=== PATIENT | male | born 1985 | race Hispanic/Latino ===

== ENCOUNTER 2024-04-02 17:55 | Inpatient (IN) | payer MEDICAID, SELFPAY ==
[2024-04-02] MEDS ORDERED: Ipratropium/Albuterol 3 ML NEB NEB PRN (18:45)
[2024-04-02] MEDS ORDERED: Ondansetron PF 4 MG/2 ML Vial IVP PRN (18:45)
[2024-04-02] MEDS ORDERED: hydrALAZINE 20 MG/ML VIAL SLOW IVP PRN (18:45)
[2024-04-02] MEDS ORDERED: Electrolyte Replacement Protocol 1 EACH FS PRN (18:45)
[2024-04-02] MEDS ORDERED: Glucagon 1 MG/ML KIT IM PRN (18:45)
[2024-04-02] MEDS ORDERED: Morphine 2 MG/ML VIAL SLOW IVP PRN (18:45)
[2024-04-02] MEDS ORDERED: Ondansetron ODT 4 MG TAB PO PRN (18:45)
[2024-04-02] MEDS ORDERED: Dextrose 50% Abboject 50 ML SYRINGE SLOW IVP PRN (18:45)
[2024-04-02] MEDS ORDERED: Dextrose 5% in Water 1,000 ML IV PRN (18:45)
[2024-04-02] MEDS ORDERED: Acetaminophen/Codeine 30-300mg Tablet PO PRN (18:45)
[2024-04-02] MEDS ORDERED: Morphine 2 MG/ML VIAL ONE (19:15)
[2024-04-02] MEDS ORDERED: Ondansetron PF 4 MG/2 ML Vial ONE ×2 (19:15→19:52)
[2024-04-02] MEDS ORDERED: metroNIDAZOLE 500 MG (100 mL) BAG ONE (19:24)
[2024-04-02] MEDS ORDERED: KETAMINE 100 MG/ML (5ML VIAL) ONE (19:35)
[2024-04-02] MEDS ORDERED: SUCCINYLCHOLINE/SOD CL,ISO/PF 200 MG/10 ML SYRINGE FS ONE (19:52)
[2024-04-02] MEDS ORDERED: Lidocaine 2% PF 100 mg/5 ml Syringe ONE (19:52)
[2024-04-02] MEDS ORDERED: Dexamethasone 4 mg/ml Vial ONE (19:52)
[2024-04-02] MEDS ORDERED: Lidocaine 2% 6 ML (Jelly) SYR ONE (19:52)
[2024-04-02] MEDS ORDERED: Rocuronium Bromide 10 MG/ML (10ML VIAL) ONE (19:52)
[2024-04-02] MEDS ORDERED: SUGAMMADEX SODIUM 200 MG/2 ML VIAL ONE (19:53)
[2024-04-02] MEDS ORDERED: PROPOFOL 20 ML ONE (19:53)
[2024-04-02] MEDS ORDERED: Midazolam HCl 2 mg/2 ml Vial ONE (19:53)
[2024-04-02] MEDS ORDERED: fentaNYL PF 100 MCG/2 ML SYRINGE ONE ×2 (19:58→21:51)
[2024-04-02] MEDS ORDERED: CEFAZOLIN 1 GM VIAL ONE (20:32)
[2024-04-02] MEDS ORDERED: HYDROmorphone 2 MG/ML VIAL SLOW IVP PRN (20:45)
[2024-04-02] MEDS ORDERED: Meperidine HCl/PF 25 MG/ML VIAL SLOW IVP PRN (20:45)
[2024-04-02] MEDS ORDERED: Ondansetron HCl/PF 4 MG/2 ML Vial IVP PRN (20:45)
[2024-04-02] MEDS ORDERED: Promethazine HCl 25 MG/ML VIAL IM PRN (20:45)
[2024-04-02 23:12] VITALS: BMI 38.1
[2024-04-03] MEDS: HYDROcodone/Acetaminophen 5/325 mg Tablet PO PRN (00:53)
[2024-04-03] MEDS: Sodium Chloride 0.9% 1,000 ML IV SCH (00:55)
[2024-04-03] MEDS: metroNIDAZOLE 500 MG in Premix 1 BAG IVPB SCH (04:35)
[2024-04-03 06:07] LABS: #Basophils Less than 0.03 10x3/uL (0.0-0.2); #Eosinophils Less than 0.03 10x3/uL (0.0-0.7); %Basophils 0.1 % (0.0-1.0); %Eosinophils 0.1 % (0.0-10.0); %Lymphocytes 14.2 % (21.0-51.0); %Monocytes 9.7 % (0.0-10.0); %Neutrophils 75.4 % (42.0-75.0); Hematocrit 27.8 % (42.0-52.0); Hemoglobin 9.5 g/dL (14.0-18.0); Mean Corpuscular HGB CONC 34.2 g/dL (32.0-36.0); Mean Corpuscular Hemoglobin 32.2 pg (27.0-31.0); Mean Corpuscular Volume 94.2 fL (78.0-98.0); Mean Platelet Volume 10.2 fL (7.4-10.4); Platelet Count 264 10x3/uL (130-400); RBC Distribution Width 12.8 % (11.5-14.5); Red Blood Cell (RBC) Count 2.95 mill/uL (4.70-6.10)
[2024-04-03 06:21] LABS: Anion Gap 14 mmol/L (10-20); BUN (Urea Nitrogen) 9 mg/dL (8.9-20.6); Calc. Creatinine Clearance 189 mL/min (70-130); Carbon Dioxide 22 mmol/L (22-29); Chloride 104 mmol/L (98-107); Estimated GFR 117; Glucose 144 mg/dL (70-105); Potassium 3.5 mmol/L (3.5-5.1); Sodium 136 mmol/L (136-145)
[2024-04-03] MEDS ORDERED: CEFAZOLIN 2 GM in Sodium Chloride 0.9% 100 ML IVPB SCH (07:45)
[2024-04-03] MEDS ORDERED: Potassium Chloride 20 MEQ TAB PO SCH (08:00)
[2024-04-03] MEDS: Potassium Chloride 20 MEQ in Premix 1 BAG IVPB SCH (08:47)
[2024-04-03] MEDS: Ketorolac Tromethamine 30 MG (1 mL) VIAL IVP SCH (09:47)
[2024-04-03] MEDS: Morphine 4 MG/ML VIAL SLOW IVP PRN (09:47)
[2024-04-03] MEDS: cefTRIAXone\\ROCEPHIN 1 GM in Sodium Chloride 0.9% 100 ML IVPB SCH (11:45)
[2024-04-03] MEDS ORDERED: cefTRIAXone\\ROCEPHIN 500 MG in Sodium Chloride 0.9% 0 ML IVPB SCH (12:00)
[2024-04-03] MEDS: Acetaminophen 500 MG TAB PO SCH (13:02)
[2024-04-03] MEDS ORDERED: Ropivacaine 0.5% HCl/PF (150 MG/30 ML VIAL) ONE (13:52)
[2024-04-03] MEDS ORDERED: Lidocaine 1% MPF 2 ML VIAL ONE (13:52)
[2024-04-03] MEDS ORDERED: fentaNYL 50 mcg/mL 1 mL Vial ONE ×2 (13:52→15:53)
[2024-04-03] MEDS ORDERED: fentaNYL PF 100 MCG/2 ML SYRINGE ONE ×2 (14:07→17:07)
[2024-04-03] MEDS ORDERED: PROPOFOL 20 ML ONE (14:07)
[2024-04-03] MEDS ORDERED: CEFAZOLIN 2 GM VIAL ONE (14:13)
[2024-04-03] MEDS ORDERED: Lidocaine 1% PF 5 ML VIAL ONE (14:43)
[2024-04-03] MEDS ORDERED: Ondansetron PF 4 MG/2 ML Vial ONE (15:24)
[2024-04-03] MEDS ORDERED: Dexamethasone 4 mg/ml Vial ONE (15:24)
[2024-04-03] MEDS ORDERED: Meperidine HCl/PF 25 MG/ML VIAL IV PRN (17:15)
[2024-04-03] MEDS ORDERED: Ondansetron HCl/PF 4 MG/2 ML Vial IVP PRN (17:15)
[2024-04-03] MEDS ORDERED: Promethazine HCl 25 MG/ML VIAL IM PRN (17:15)
[2024-04-03] MEDS ORDERED: Meperidine HCl/PF 25 MG/ML VIAL SLOW IVP PRN (17:15)
[2024-04-03] MEDS ORDERED: HYDROmorphone 2 MG/ML VIAL SLOW IVP PRN (17:15)
[2024-04-03] MEDS ORDERED: Morphine Sulfate 2 MG/ML SYRINGE SLOW IVP PRN (17:15)
[2024-04-03] MEDS ORDERED: PACU-Morphine 4MG/ML VIAL SLOW IVP PRN (17:15)
[2024-04-03] MEDS: Lactated Ringer's 1,000 ML IV SCH (17:42)
[2024-04-03] MEDS: Enoxaparin 40 MG (0.4 mL) SYRINGE SC SCH (21:32)
[2024-04-03] MEDS: CEFAZOLIN 2 GM in Sodium Chloride 0.9% 100 ML IVPB SCH (22:04)
[2024-04-04 08:42] LABS: #Basophils Less than 0.03 10x3/uL (0.0-0.2); #Eosinophils Less than 0.03 10x3/uL (0.0-0.7); %Basophils 0.2 % (0.0-1.0); %Lymphocytes 24.3 % (21.0-51.0); %Monocytes 6.1 % (0.0-10.0); Hematocrit 23.1 % (42.0-52.0); Hemoglobin 7.9 g/dL (14.0-18.0); Mean Corpuscular HGB CONC 34.2 g/dL (32.0-36.0); Mean Corpuscular Hemoglobin 32.8 pg (27.0-31.0); Mean Corpuscular Volume 95.9 fL (78.0-98.0); Mean Platelet Volume 10.1 fL (7.4-10.4); Platelet Count 199 10x3/uL (130-400); RBC Distribution Width 12.8 % (11.5-14.5); Red Blood Cell (RBC) Count 2.41 mill/uL (4.70-6.10)
[2024-04-04 09:15] LABS: Anion Gap 12 mmol/L (10-20); BUN (Urea Nitrogen) 10 mg/dL (8.9-20.6); Calc. Creatinine Clearance 187 mL/min (70-130); Calcium 8.1 mg/dL (7.8-10.44); Carbon Dioxide 23 mmol/L (22-29); Chloride 105 mmol/L (98-107); Estimated GFR 116; Glucose 139 mg/dL (70-105); Potassium 3.2 mmol/L (3.5-5.1); Sodium 137 mmol/L (136-145)
[2024-04-04] MEDS: Methocarbamol 500 MG TAB PO PRN (21:06)
[2024-04-05 08:04] LABS: #Basophils Less than 0.03 10x3/uL (0.0-0.2); #Eosinophils Less than 0.03 10x3/uL (0.0-0.7); %Basophils 0.1 % (0.0-1.0); %Eosinophils 0.1 % (0.0-10.0); %Monocytes 7.4 % (0.0-10.0); %Neutrophils 69.7 % (42.0-75.0); Hemoglobin 7.7 g/dL (14.0-18.0); Mean Corpuscular HGB CONC 33.5 g/dL (32.0-36.0); Mean Corpuscular Hemoglobin 32.5 pg (27.0-31.0); Mean Platelet Volume 10.1 fL (7.4-10.4); Platelet Count 230 10x3/uL (130-400); Red Blood Cell (RBC) Count 2.37 mill/uL (4.70-6.10)
[2024-04-05 08:20] LABS: Anion Gap 12 mmol/L (10-20); BUN (Urea Nitrogen) 9 mg/dL (8.9-20.6); Calc. Creatinine Clearance 218 mL/min (70-130); Calcium 8.5 mg/dL (7.8-10.44); Carbon Dioxide 25 mmol/L (22-29); Chloride 104 mmol/L (98-107); Estimated GFR 122; Glucose 99 mg/dL (70-105); Potassium 3.4 mmol/L (3.5-5.1); Sodium 138 mmol/L (136-145)
[2024-04-05] MEDS: Potassium Chloride 20 MEQ TAB PO SCH (08:44)
[2024-04-05] MEDS: TETANUS, DIPHTHERIA TOX,ADULT (TDVAX) 0.5 ML VIAL IM ONE (18:45)
[2024-04-06 09:57] LABS: #Basophils Less than 0.03 10x3/uL (0.0-0.2); %Basophils 0.1 % (0.0-1.0); %Lymphocytes 22.7 % (21.0-51.0); %Monocytes 8.4 % (0.0-10.0); %Neutrophils 67.1 % (42.0-75.0); Hematocrit 23.6 % (42.0-52.0); Mean Corpuscular HGB CONC 33.9 g/dL (32.0-36.0); Mean Corpuscular Hemoglobin 32.4 pg (27.0-31.0); Mean Corpuscular Volume 95.5 fL (78.0-98.0); Mean Platelet Volume 10.3 fL (7.4-10.4); Platelet Count 262 10x3/uL (130-400); RBC Distribution Width 12.9 % (11.5-14.5); Red Blood Cell (RBC) Count 2.47 mill/uL (4.70-6.10)
[2024-04-06] MEDS: Senokot S 8.6-50 MG TAB PO SCH (09:59)
[2024-04-06] MEDS: traMADol HCl 50 MG TAB PO PRN (10:02)
[2024-04-06 10:21] LABS: Anion Gap 14 mmol/L (10-20); BUN (Urea Nitrogen) 12 mg/dL (8.9-20.6); Calc. Creatinine Clearance 218 mL/min (70-130); Calcium 8.9 mg/dL (7.8-10.44); Carbon Dioxide 24 mmol/L (22-29); Chloride 102 mmol/L (98-107); Estimated GFR 122; Glucose 120 mg/dL (70-105); Potassium 3.9 mmol/L (3.5-5.1); Sodium 136 mmol/L (136-145)
[2024-04-07] MEDS: Polyethylene Glycol 3350 17 GM Packet PO SCH (08:41)
[2024-04-08] MEDS: cefTRIAXone (ROCEPHIN) 1 GM VIAL ONE (12:55)
[2024-04-09 16:58] VITALS: BMI 38.1
[2024-04-13] MEDS ORDERED: CEFAZOLIN 2 GM in Sodium Chloride 0.9% 100 ML IVPB SCH (13:00)
[2024-04-13] MEDS ORDERED: metroNIDAZOLE 500 MG (100 mL) BAG ONE (13:42)
[2024-04-13] MEDS ORDERED: fentaNYL PF 100 MCG/2 ML SYRINGE ONE ×3 (14:14→16:41)
[2024-04-13] MEDS ORDERED: PROPOFOL 40 ML ONE (14:15)
[2024-04-13] MEDS ORDERED: Lidocaine 1% PF 5 ML VIAL ONE (14:16)
[2024-04-13] MEDS ORDERED: Midazolam HCl 2 mg/2 ml Vial ONE (14:39)
[2024-04-13] MEDS ORDERED: CEFAZOLIN 2 GM VIAL ONE (14:44)
[2024-04-13] MEDS ORDERED: SUGAMMADEX SODIUM 200 MG/2 ML VIAL ONE (15:30)
[2024-04-13] MEDS ORDERED: Dexamethasone 20 MG/5 ML VIAL ONE (15:30)
[2024-04-13] MEDS ORDERED: Ondansetron PF 4 MG/2 ML Vial ONE (15:30)
[2024-04-13] MEDS ORDERED: Promethazine HCl 25 MG/ML VIAL IM PRN (15:54)
[2024-04-13] MEDS ORDERED: Ondansetron HCl/PF 4 MG/2 ML Vial IVP PRN (15:54)
[2024-04-13] MEDS ORDERED: HYDROmorphone 2 MG/ML VIAL SLOW IVP PRN (15:54)
[2024-04-13] MEDS ORDERED: Labetalol HCl 100 MG/20 ML VIAL ONE (16:58)
[2024-04-13] MEDS ORDERED: hydrALAZINE 20 MG/ML VIAL ONE (17:18)
[2024-04-13] MEDS ORDERED: HYDROmorphone 0.5 MG/0.5 ML SYRINGE ONE (17:29)
[2024-04-13] MEDS ORDERED: fentaNYL 50 mcg/mL 1 mL Vial ONE (17:29)
[2024-04-13] MEDS: Senokot S 8.6-50 MG TAB PO SCH (21:52)
[2024-04-13] MEDS: CEFAZOLIN 2 GM in Sodium Chloride 0.9% 100 ML IVPB SCH (22:03)
[2024-04-14] MEDS: HYDROcodone/Acetaminophen 10/325 mg Tablet PO SCH (05:34)
[2024-04-14] MEDS ORDERED: HYDROcodone/Acetaminophen 7.5/325 mg Tablet PO PRN (08:54)
[2024-04-14] MEDS: Morphine 4 MG/ML VIAL SLOW IVP PRN (10:04)
[2024-04-14] MEDS: HYDROcodone/Acetaminophen 7.5/325 mg Tablet PO PRN (14:10)
[2024-04-14] MEDS: Acetaminophen 500 MG TAB PO PRN (20:07)
[2024-04-14] MEDS: Sodium Chloride 0.9% 500 ML IVPB SCH (20:56)
[2024-04-14] MEDS: Sodium Chloride 0.9% 1,000 ML IV SCH (20:56)
[2024-04-14 20:57] LABS: #Basophils Less than 0.03 10x3/uL (0.0-0.2); %Basophils 0.1 % (0.0-1.0); %Eosinophils 0.6 % (0.0-10.0); %Lymphocytes 17.4 % (21.0-51.0); %Monocytes 10.2 % (0.0-10.0); %Neutrophils 71.2 % (42.0-75.0); Hematocrit 24.4 % (42.0-52.0); Hemoglobin 8.2 g/dL (14.0-18.0); Mean Corpuscular HGB CONC 33.6 g/dL (32.0-36.0); Mean Corpuscular Hemoglobin 30.9 pg (27.0-31.0); Mean Corpuscular Volume 92.1 fL (78.0-98.0); Platelet Count 436 10x3/uL (130-400); RBC Distribution Width 12.6 % (11.5-14.5); Red Blood Cell (RBC) Count 2.65 mill/uL (4.70-6.10)
[2024-04-14 21:16] LABS: ALT (SGPT) 8 U/L (Less than 45); AST (SGOT) 23 U/L (11-34); Alkaline Phosphatase 91 U/L (40-110); Anion Gap 13 mmol/L (10-20); BUN (Urea Nitrogen) 12 mg/dL (8.9-20.6); Bilirubin, Total 0.6 mg/dL (0.3-1.2); Calc. Creatinine Clearance 211 mL/min (70-130); Calcium 8.8 mg/dL (7.8-10.44); Carbon Dioxide 21 mmol/L (22-29); Chloride 99 mmol/L (98-107); Estimated GFR 121; Globulin 4.3 g/dL (2.4-3.5); Glucose 109 mg/dL (70-105); Potassium 3.6 mmol/L (3.5-5.1); Protein, Total 7.3 g/dL (6.0-8.3); Sodium 129 mmol/L (136-145)
[2024-04-15 11:17] LABS: Lactic Acid 0.76 mmol/L (0.50-2.20)
[2024-04-15] MEDS: Sodium Chloride 0.9% 1,000 ML IV SCH (12:56)
[2024-04-16 09:04] LABS: #Basophils Less than 0.03 10x3/uL (0.0-0.2); %Basophils 0.1 % (0.0-1.0); %Eosinophils 1.3 % (0.0-10.0); %Monocytes 7.5 % (0.0-10.0); %Neutrophils 66.1 % (42.0-75.0); Hematocrit 26.1 % (42.0-52.0); Hemoglobin 8.9 g/dL (14.0-18.0); Mean Corpuscular HGB CONC 34.1 g/dL (32.0-36.0); Mean Corpuscular Volume 90.9 fL (78.0-98.0); Mean Platelet Volume 10.2 fL (7.4-10.4); Platelet Count 476 10x3/uL (130-400); RBC Distribution Width 12.6 % (11.5-14.5); Red Blood Cell (RBC) Count 2.87 mill/uL (4.70-6.10)
[2024-04-16 09:29] LABS: Anion Gap 13 mmol/L (10-20); BUN (Urea Nitrogen) 8 mg/dL (8.9-20.6); Calc. Creatinine Clearance 235 mL/min (70-130); Calcium 9.1 mg/dL (7.8-10.44); Carbon Dioxide 22 mmol/L (22-29); Chloride 101 mmol/L (98-107); Estimated GFR 125; Glucose 137 mg/dL (70-105); Potassium 3.4 mmol/L (3.5-5.1); Sodium 133 mmol/L (136-145)
[2024-04-16] MEDS ORDERED: Iopamidol-370 76% 500 ML MDV (1 ML CHARGE) ONE (10:09)
[2024-04-17] MEDS: Aspirin 81 mg Enteric Coated Tablet PO SCH (21:35)
[2024-04-18 12:03] VITALS: BP 111/70; TEMP 99.4
== END 2024-04-18 12:05 | disposition home or self-care (01) | DRG 493 ==
LOC: ERS 17:55 → SURG A 18:45
PROVIDERS: ADMIT Specialist; ATTEND Specialist
PROC: 0SH Lower Joints, Insertion (ICD-10-PCS; principal; 2024-04-03)
PROC: 0QSG04Z Reposition Right Tibia with Internal Fixation Device, Open Approach (ICD-10-PCS; 2024-04-03)
PROC: 0SP Lower Joints, Removal (ICD-10-PCS; 2024-04-13)
PROC: 0QSH04Z Reposition Left Tibia with Internal Fixation Device, Open Approach (ICD-10-PCS; 2024-04-13)
DX: S82.872B Displaced pilon fracture of left tibia, initial encounter for open fracture type I or II (principal); S82.141A Displaced bicondylar fracture of right tibia, initial encounter for closed fracture; W17.89XA Other fall from one level to another, initial encounter; S82.402A Unspecified fracture of shaft of left fibula, initial encounter for closed fracture; R00.0 Tachycardia, unspecified
CPT/HCPCS: 36415; 36416; 71045; 71275; 80048; 80053; 83605; 83930; 85025; 93005; 93010; 96374; 96375; 97139; C1713; C1781; G0390; J0360; J0690; J0696; J1100; J1171; J1650; J1885; J2003; J2250; J2270; J2272; J2405; J2704; J2795; J3010; J3480; J7030; J7120